=== PATIENT | female | born 1960 | race Caucasian/White ===

== ENCOUNTER 2016-08-20 03:56 | Inpatient (IN) | payer OTHER ==
[~2016-08-20] VITALS: Ht 157.5 cm; Wt 135.1 kg
[~2016-08-20 03:56] MED LIST: ADVAIR 250-501 EACH IH; AMARYL4 MG PO; BROVANA15 MCG/2 M IH; COUMADIN3 MG PO; DIOVAN HCT 1601 EAC1 PO; JANUMET 50/11 TABLET PO; SPIRIVA1 INHALATI IH
[2016-08-20 05:05] LABS: HEMATOCRIT 39.1 % (36.0-46.0); MCH 26.9 PG (29.0-34.0); MCHC 32.2 G/DL (30.0-36.0); MCV 83.4 FL (83-99); MEAN PLAT.VOLUME 10.7 uM^3 (9.5-12.4); PLATELET COUNT 193 K/uL (156-360); RBC DIS.WIDTH-CV 14.9 % (11.8-14.6); RBC DIS.WIDTH-SD 44.6 % (39-53); RED BLOOD COUNT 4.69 M/uL (3.80-5.20); WHITE BLOOD COUNT 10.6 K/uL (4.1-10.2)
[2016-08-20] MEDS ORDERED: POTASSIUM CHLO10 ME3 PO (05:12)
[2016-08-20] MEDS ORDERED: LYRICA50 MG PO (05:13)
[2016-08-20] MEDS ORDERED: LOSARTAN-HCTZ1 EAC1 PO (05:13)
[2016-08-20] MEDS ORDERED: BACTRIM,SEPT1 TABLET PO (05:14)
[2016-08-20] MEDS ORDERED: PREDNISONE20 MG PO (05:15)
[2016-08-20] MEDS ORDERED: XARELTO20 MG PO (05:16)
[2016-08-20] MEDS ORDERED: LEVEMIR FL100 UNIT/1 SC ×2 (05:18)
[2016-08-20] MEDS ORDERED: ALBUTEROL2.5 MG/3 M IH (05:20)
[2016-08-20] MEDS ORDERED: ADVAIR 100/501 DISK IH (05:21)
[2016-08-20 05:24] LABS: TROP-I INTERPRETATION NEGATIVE; TROPONIN-I 0.02 ng/mL (0.0-0.30)
[2016-08-20 06:17] LABS: CHLORIDE 103 mEq/L (99-109); POTASSIUM 4.4 mEq/L (3.7-5.4); SODIUM 136 mEq/L (136-147)
[2016-08-20 06:19] LABS: GLUCOSE 362 mg/dL (70-99)
[2016-08-20 06:20] LABS: ANION GAP 16 MEQ/L (2-14)
[2016-08-20 06:23] LABS: GFR ESTIMATE (CALCULATED) 38 mL/min/
[2016-08-20 06:24] LABS: UREA NITROGEN (BUN) 34 mg/dL (9-23)
[2016-08-20 08:08] LABS: ANION GAP 14 MEQ/L (2-14); CHLORIDE 104 MEQ/L (99-109); POTASSIUM 4.4 MEQ/L (3.7-5.4); SAMPLE HEMOLYSIS CHECK 0; SAMPLE ICTERIC CHECK 0; SAMPLE LIPEMIA CHECK 0; SODIUM 136 MEQ/L (136-147)
[2016-08-20 08:15] LABS: GFR ESTIMATE (CALCULATED) 45 mL/min/; UREA NITROGEN (BUN) 35 mg/dL (9-23)
[2016-08-20] MEDS ORDERED: PROMETHAZI6.25 MG/5 PO (08:16)
[2016-08-20 08:17] LABS: GLUCOSE 402 mg/dL (70-99)
[2016-08-20 08:32] LABS: POINT-OF-CARE USER ID NUTJLF39
[2016-08-20 10:11] VITALS: BP 162/76
[2016-08-20 10:13] LABS: Estimated Average Glucose 146 mg/dL (70-123); HEMOGLOBIN A1c (GLYCOHEMOGLOB) 6.7 % HGB (Below 5.7)
[2016-08-20 12:38] LABS: POINT-OF-CARE METER ID UU13113831; POINT-OF-CARE USER ID HCCJMZ81
[2016-08-20 12:50] LABS: TROP-I INTERPRETATION NEGATIVE; TROPONIN-I 0.04 ng/mL (0.0-0.30)
[2016-08-20 16:30] VITALS: BP 152/72
[2016-08-20 18:01] LABS: POINT-OF-CARE METER ID UU14162513
[2016-08-20 18:25] LABS: TROP-I INTERPRETATION NEGATIVE; TROPONIN-I 0.03 ng/mL (0.0-0.30)
[2016-08-20 19:40] VITALS: BP 176/80
[2016-08-20 22:39] LABS: POINT-OF-CARE METER ID UU14162513
[2016-08-20 23:57] VITALS: BP 184/84
[2016-08-21 04:31] VITALS: BP 137/61
[2016-08-21 06:47] LABS: ANION GAP 10 MEQ/L (2-14); CHLORIDE 105 MEQ/L (99-109); GFR ESTIMATE (CALCULATED) > 59 mL/min/; GLUCOSE 329 mg/dL (70-99); POTASSIUM 4.8 MEQ/L (3.7-5.4); SAMPLE HEMOLYSIS CHECK 0; SAMPLE ICTERIC CHECK 0; SAMPLE LIPEMIA CHECK 0; SODIUM 134 MEQ/L (136-147); UREA NITROGEN (BUN) 31 mg/dL (9-23)
[2016-08-21 06:48] LABS: MCH 27.1 PG (29.0-34.0); MCHC 31.8 G/DL (30.0-36.0); MCV 85.1 FL (83-99); MEAN PLAT.VOLUME 10.7 uM^3 (9.5-12.4); PLATELET COUNT 184 K/uL (156-360); RBC DIS.WIDTH-CV 15.4 % (11.8-14.6); RBC DIS.WIDTH-SD 47.8 % (39-53); RED BLOOD COUNT 3.88 M/uL (3.80-5.20); WHITE BLOOD COUNT 11.5 K/uL (4.1-10.2)
[2016-08-21 08:00] VITALS: BP 191/87
[2016-08-21 08:59] LABS: POINT-OF-CARE METER ID UU14162513
[2016-08-21 12:21] VITALS: BP 188/74
[2016-08-21 12:34] LABS: POINT-OF-CARE METER ID UU14162513
[2016-08-21 16:00] VITALS: BP 145/73
[2016-08-21 17:52] LABS: POINT-OF-CARE METER ID UU14162513
[2016-08-21 21:39] VITALS: BP 155/70
[2016-08-21 22:56] LABS: POINT-OF-CARE METER ID UU14162513
[2016-08-22] VITALS (7 sets, daily range): BP systolic 140–188; BP diastolic 64–85
[2016-08-22 06:48] LABS: HEMATOCRIT 33.3 % (36.0-46.0); MCH 26.6 PG (29.0-34.0); MCHC 32.1 G/DL (30.0-36.0); MCV 82.8 FL (83-99); MEAN PLAT.VOLUME 10.6 uM^3 (9.5-12.4); PLATELET COUNT 185 K/uL (156-360); RBC DIS.WIDTH-CV 15.2 % (11.8-14.6); RED BLOOD COUNT 4.02 M/uL (3.80-5.20); WHITE BLOOD COUNT 11.2 K/uL (4.1-10.2)
[2016-08-22 07:14] LABS: ALKALINE PHOSPHATASE 47 IU/L (3-129); ANION GAP 12 MEQ/L (2-14); CHLORIDE 103 MEQ/L (99-109); GFR ESTIMATE (CALCULATED) > 59 mL/min/; GLUCOSE 317 mg/dL (70-99); POTASSIUM 4.6 MEQ/L (3.7-5.4); SAMPLE HEMOLYSIS CHECK 0; SAMPLE ICTERIC CHECK 0; SAMPLE LIPEMIA CHECK 0; SODIUM 135 MEQ/L (136-147); TOTAL BILIRUBIN 0.2 MG/DL (0.0-1.0); UREA NITROGEN (BUN) 32 mg/dL (9-23)
[2016-08-22 07:45] LABS: POINT-OF-CARE METER ID UU13113831
[2016-08-23 03:19] VITALS: BP 166/76
[2016-08-23 06:41] LABS: MCH 27.4 PG (29.0-34.0); MCHC 32.9 G/DL (30.0-36.0); MCV 83.1 FL (83-99); MEAN PLAT.VOLUME 10.3 uM^3 (9.5-12.4); PLATELET COUNT 200 K/uL (156-360); RBC DIS.WIDTH-SD 45.7 % (39-53); RED BLOOD COUNT 4.09 M/uL (3.80-5.20); WHITE BLOOD COUNT 11.4 K/uL (4.1-10.2)
[2016-08-23 07:21] LABS: ALKALINE PHOSPHATASE 48 IU/L (3-129); ANION GAP 13 MEQ/L (2-14); CHLORIDE 101 MEQ/L (99-109); GFR ESTIMATE (CALCULATED) > 59 mL/min/; GLUCOSE 263 mg/dL (70-99); POTASSIUM 4.6 MEQ/L (3.7-5.4); SAMPLE HEMOLYSIS CHECK 0; SAMPLE ICTERIC CHECK 0; SAMPLE LIPEMIA CHECK 0; SODIUM 135 MEQ/L (136-147); UREA NITROGEN (BUN) 36 mg/dL (9-23)
[2016-08-23 07:24] LABS: TOTAL BILIRUBIN 0.3 MG/DL (0.0-1.0)
[2016-08-23 07:35] VITALS: BP 188/88
[2016-08-23 12:00] VITALS: BP 177/84
[2016-08-23 16:35] VITALS: BP 178/70
[2016-08-23 19:43] VITALS: BP 177/82
[2016-08-23 23:46] VITALS: BP 133/61
[2016-08-24 03:43] VITALS: BP 148/72
[2016-08-24 07:05] LABS: HEMATOCRIT 38.4 % (36.0-46.0); MCH 27.7 PG (29.0-34.0); MCHC 33.3 G/DL (30.0-36.0); MCV 83.1 FL (83-99); MEAN PLAT.VOLUME 11.5 uM^3 (9.5-12.4); PLATELET COUNT 236 K/uL (156-360); RBC DIS.WIDTH-CV 15.1 % (11.8-14.6); RBC DIS.WIDTH-SD 45.7 % (39-53); RED BLOOD COUNT 4.62 M/uL (3.80-5.20); WHITE BLOOD COUNT 13.7 K/uL (4.1-10.2)
[2016-08-24 07:40] LABS: ANION GAP 13 MEQ/L (2-14); CHLORIDE 95 MEQ/L (99-109); POTASSIUM 5.3 MEQ/L (3.7-5.4); SAMPLE HEMOLYSIS CHECK 2; SAMPLE ICTERIC CHECK 0; SAMPLE LIPEMIA CHECK 0; SODIUM 129 MEQ/L (136-147)
[2016-08-24 07:46] LABS: GFR ESTIMATE (CALCULATED) > 59 mL/min/; GLUCOSE 240 mg/dL (70-99); UREA NITROGEN (BUN) 38 mg/dL (9-23)
[2016-08-24 08:00] VITALS: BP 138/73
[2016-08-24 08:17] LABS: EOSINOPHIL (%) 0.1 % (0-5); IMMATURE GRANULOCYTE (%) 2.4 % (0.0-0.7); IMMATURE GRANULOCYTE COUNT 0.3 K/uL; LYMPHOCYTE COUNT 1.2 K/uL (1.0-2.8); MONOCYTE (%) 6.1 % (3-12); MONOCYTE COUNT 0.8 K/uL (0-0.8); NEUTROPHIL (%) 82.2 % (45-76); NEUTROPHIL COUNT 11.3 K/uL (1.8-6.4)
[2016-08-24 08:18] LABS: HEMATOLOGY COMMENT 1 SMEAR COMPATIBLE; USER ID SDF
[2016-08-24 09:45] LABS: POTASSIUM 4.7 MEQ/L (3.7-5.4)
[2016-08-24 11:38] VITALS: BP 144/70
[2016-08-24 15:31] VITALS: BP 152/78
[2016-08-24 19:44] VITALS: BP 150/70
[2016-08-24 23:24] VITALS: BP 152/86
[2016-08-25 03:30] VITALS: BP 139/62
[2016-08-25 07:54] VITALS: BP 135/84
[2016-08-25 12:30] VITALS: BP 133/67
[2016-08-25 16:05] VITALS: BP 150/89
[2016-08-25 19:11] VITALS: BP 162/88
[2016-08-25 23:22] VITALS: BP 175/80
[2016-08-26 03:14] VITALS: BP 138/69
[2016-08-26 07:36] LABS: HEMATOCRIT 38.8 % (36.0-46.0); MCH 27.5 PG (29.0-34.0); MCHC 33.8 G/DL (30.0-36.0); MCV 81.5 FL (83-99); MEAN PLAT.VOLUME 10.6 uM^3 (9.5-12.4); PLATELET COUNT 235 K/uL (156-360); RBC DIS.WIDTH-SD 44.2 % (39-53); RED BLOOD COUNT 4.76 M/uL (3.80-5.20); WHITE BLOOD COUNT 14.9 K/uL (4.1-10.2)
[2016-08-26 07:56] LABS: ALKALINE PHOSPHATASE 49 IU/L (3-129); ANION GAP 16 MEQ/L (2-14); CHLORIDE 98 MEQ/L (99-109); GFR ESTIMATE (CALCULATED) > 59 mL/min/; GLUCOSE 143 mg/dL (70-99); POTASSIUM 4.5 MEQ/L (3.7-5.4); SAMPLE HEMOLYSIS CHECK 0; SAMPLE ICTERIC CHECK 0; SAMPLE LIPEMIA CHECK 0; TOTAL BILIRUBIN 0.3 MG/DL (0.0-1.0); UREA NITROGEN (BUN) 44 mg/dL (9-23)
[2016-08-26 07:58] LABS: SODIUM 138 MEQ/L (136-147)
[2016-08-26 08:00] VITALS: BP 134/68
[2016-08-26 08:17] LABS: EOSINOPHIL (%) 0.1 % (0-5); HEMATOLOGY COMMENT 1 SMEAR COMPATIBLE; IMMATURE GRANULOCYTE (%) 4.4 % (0.0-0.7); IMMATURE GRANULOCYTE COUNT 0.7 K/uL; LYMPHOCYTE COUNT 1.2 K/uL (1.0-2.8); MONOCYTE (%) 4.4 % (3-12); MONOCYTE COUNT 0.7 K/uL (0-0.8); NEUTROPHIL (%) 82.9 % (45-76); NEUTROPHIL COUNT 12.3 K/uL (1.8-6.4); USER ID CL
[2016-08-26 16:00] VITALS: BP 172/86
[2016-08-26 19:39] VITALS: BP 133/64
[2016-08-26] MEDS ORDERED: PREDNISONE20 MG PO (20:13)
[2016-08-26] MEDS ORDERED: GUAIFENESIN WI120 M1 PO (20:13)
[2016-08-26] MEDS ORDERED: TYLENOL REGULA325 MG PO (20:13)
[2016-08-26] MEDS ORDERED: FAMOTIDINE20 MG PO (20:13)
== END 2016-08-26 21:05 | disposition home or self-care (01) | DRG 191 ==
LOC: EME → EDBD 03:56 → EME 03:56 → EDOF 08:29 → 5WEST 08:29 → 2EAST 08-22 02:35 → 5WEST 08-22 02:35 → 2EAST 08-22 17:15
PROVIDERS: Emergency Medicine; Family Medicine; Hospitalist; Internal Medicine
DX: J44.0 Chronic obstructive pulmonary disease with (acute) lower respiratory infection (principal); J45.901 Unspecified asthma with (acute) exacerbation; Z68.43 Body mass index [BMI] 50.0-59.9, adult; E66.01 Morbid (severe) obesity due to excess calories; E11.65 Type 2 diabetes mellitus with hyperglycemia; I10 Essential (primary) hypertension; J44.1 Chronic obstructive pulmonary disease with (acute) exacerbation; J20.9 Acute bronchitis, unspecified; Z79.4 Long term (current) use of insulin; I45.10 Unspecified right bundle-branch block
CPT/HCPCS: 71010; 71020; 80048; 80048 91; 80053; 82009; 82800; 82948; 83036; 84484; 84999; 85025; 85027; 87040; 87070; 87205; 93005; 93306; 94640; 94640 76; 94760; 99202; 99281; 99284; G0378; J0456; J0696; J1815; J1885; J2270; J2920; J2930; J7030; J7050; J7512